=== PATIENT | female | born 1995 | race Two or more races ===

== ENCOUNTER 2017-12-17 11:33 | Emergency (ER) | payer MEDICAID ==
[~2017-12-17] VITALS: Ht 152.4 cm; Wt 57.6 kg
[2017-12-17 14:18] VITALS: BP 118/65
[2017-12-17] MEDS ORDERED: ALBUTEROL SULF 2.5 MG/0.5ML(0.5%) NEB SOLN NEB ONE (14:30)
[2017-12-17] MEDS ORDERED: IPRATROPIUM BROM 0.5 MG/2.5ML INH SOL NEB ONE (14:30)
== END 2017-12-17 15:21 | disposition home or self-care (01) ==
LOC: ER 11:33
DX: J45.909 Unspecified asthma, uncomplicated (principal); J02.9 Acute pharyngitis, unspecified
CPT/HCPCS: 81025; 94640

== ENCOUNTER 2024-11-11 09:49 | Emergency (ER) | payer MEDICAID ==
[~2024-11-11] VITALS: Ht 149.9 cm; Wt 62.3 kg
[2024-11-11 10:47] VITALS: BP 124/85; PULSE 87; RESP 13; TEMP 97.5; O2SAT 98
[2024-11-11 11:03] LABS: Urine Bacteria None Seen /hpf (None Seen)
[2024-11-11 11:20] LABS: Urine Blood 3+ /uL (Negative); Urine Clarity Turbid (Clear); Urine Color Yellow (Yellow); Urine Hyaline Cast FEW /lpf (0 - 2); Urine Protein, UAD Negative (Negative); Urine Specific Gravity 1.013 (1.001-1.035); Urine Squamous Epithelial Cell MOD /hpf (<5); Urine Urobilinogen Normal (Negative); Urine WBC 28 /HPF (0-5)
[2024-11-11] MEDS ORDERED: NITR-87 PO (11:45)
--- NOTE | 2024-11-11 11:45 | ED.PDOC ---
General HPI Comments 29-year-old presents for dysuria urgency frequency x1 day. No red flags. No fevers chills nausea vomiting diarrhea or flank pain or vaginal discharge Chief Complaint: Urinary Time Seen by MD: 10:35 Primary Care Provider: none Reviewed notes: Nurses Notes, Medications, Allergies Allergies: Coded Allergies: Prednisolone (Verified Allergy, Unknown, 12/17/17) Home Meds Active Scripts Nitrofurantoin Monohydrate Mac (Macrobid) 100 Mg Cap, 100 MG PO BID for 7 Days, #14 CAP 0 Refills Prov:CHU LEMA Jessica [employer] 11/11/24 Information Source: Patient Mode of Arrival: Ambulatory Past Medical History PAST MEDICAL HISTORY: Denies Surgical History: Denies all surgeries [employer] MANAGER History: No Pertinent [employer] MANAGER History All Other Systems: Reviewed and Negative (per hpi) Physical Exam General Appearance: No Apparent Distress, Normal HEENT: Normal ENT Inspection, Pharynx Normal, TMs Normal Neck: Full Range of Motion, Non-Tender, Normal, Normal Inspection Respiratory: Chest Non-Tender, Lungs Clear, No Accessory Muscle Use, No Respiratory Distress, Normal Breath Sounds Cardiovascular: No Edema, No JVD, No Murmur, No Gallop, Normal Peripheral Pulses, Regular Rate/Rhythm Breast Exam: Deferred Gastrointestinal: No Organomegaly, Non Tender, No Pulsatile Mass, Normal Bowel Sounds, Soft, Other (CVA tenderness negative bilaterally) Genitalia: Deferred Pelvic: Deferred Rectal: Deferred Extremities: No calf tenderness, Normal capillary refill, Normal inspection, Normal range of motion, Non-tender, No pedal edema Musculoskeletal : Apperance: Normal Neurologic: Alert, testing and regulating technician II-XII nml as Tested, No Motor Deficits, Normal Affect, Normal Mood, No Sensory Deficits Cerebellar Function: Normal Reflexes: Normal Skin: Dry, Normal Color, Warm Lymphatic: No Adenopathy Was a procedure done? Was a procedure done?: No Differential Diagnosis Kidney stone (Female): Other Urinary Problem (Female): UTI X-Ray, Labs, Meds, VS Vital Signs Date Time Temp Pulse Resp B/P (MAP) Pulse Ox O2 Delivery O2 Flow Rate FiO2 11/11/24 10:47 97.5 87 13 124/85 (98) 98 97.5 11/11/24 10:46 87 16 98 Room Air 11/11/24 10:00 97.5 87 16 124/85 (98) 98 97.5 Lab Test 11/11/24 09:57 Range/Units Urine Color Yellow Yellow Urine Clarity Turbid H Clear Urine pH 6.0 5.0-9.0 Urine Specific [place] 1.013 1.001-1.035 Urine Protein Negative Negative Urine Ketones Negative Negative Urine Blood 3+ H Negative /uL Urine Nitrite Negative Negative Urine Bilirubin Negative Negative Urine Urobilinogen Normal Negative mg/dL Urine Leukocyte Esterase 3+ Negative /uL Urine RBC <1 0 - 4 /hpf Urine Microscopic WBC 28 H 0-5 /HPF Urine Squamous Epithelial Cells Mod <5 /hpf Urine Bacteria None seen None Seen /hpf Urine Hyaline Casts Few 0 - 2 /lpf Urine Glucose Normal Normal mg/dL Current Medications Medications (Trade) Dose Ordered Sig/Michael Route Start Time Stop Time Status Last Admin Ceftriaxone Sodium (Rocephin) 1,000 mg ONCE ONCE IM 11/11/24 11:45 11/11/24 11:46 DC 11/11/24 11:56 X-Ray, Labs, Meds, VS Comment History and lab findings consistent with UTI Vital signs stable patient stable Patient tolerating p.o. fluids Encouraged parents to increase water intake Practice good personal hygiene. Always wipe from front to back Drink plenty of fluids to help flush bacteria out of the urinary tract Empty bladder completely as soon as you feel the urge Empty bladder after intercourse Prescribed p.o. antibiotics for presentation of symptoms Complete course of antibiotic therapy even if symptoms improve or resolve. There should be no leftover antibiotics as this can lead to antibiotic resistant bacteria and even worse infection. Parents verbalized understanding. Potential side effects discussed with patient including abdominal pain, nausea, diarrhea. Recommended probiotics and return precautions given Persistent diarrhea Dehydration Blood in stool Ill-appearing Time of 1ST Reevaluation: 11:36 Reevaluation 1ST: Improved Patient Education/Counseling: Diagnosis, Treatment Family Education/Counseling: Diagnosis, Treatment Departure 1 Departure Time of Disposition: 11:44 Impression: Primary Impression: UTI (urinary tract infection) Qualified Codes: N30.00 - Acute cystitis without hematuria Disposition: HOME / SELF CARE / HOMELESS Condition: Stable e-Prescriptions Nitrofurantoin Monohydrate Mac (Macrobid) 100 Mg Cap 100 MG PO BID for 7 Days, #14 CAP 0 Refills Prov: CHU LEMA [employer] 11/11/24 Critical Care Note Critical Care Time?: No Stability Stability form required: No Heart Score Heart Score: Heart Score Response (Comments) Value History N/A 0 EKG N/A 0 Age N/A 0 Risk Factors N/A 0 Troponin N/A 0 Total 0 CHU LEMA [employer] Nov 11, 2024 11:45
[2024-11-11] MEDS: cefTRIAXone SOD 1,000 MG VL IM ONE (11:56)
== END 2024-11-11 11:58 | disposition home or self-care (01) ==
LOC: ER 09:49
DX: N39.0 Urinary tract infection, site not specified (principal); Z88.8 Allergy status to other drugs, medicaments and biological substances
CPT/HCPCS: 81001; 96372; 99283; J0696